=== PATIENT | female | born 1965 | race Caucasian/White ===

== ENCOUNTER 2016-11-15 08:46 | Emergency (ER) | payer OTHER, BC, MEDICAID ==
[2016-11-15] MEDS ORDERED: ONDANSETRON 4 MG ORAL DISINTEGRATING TAB (S0181) As Ordered ONE (09:09)
[2016-11-15] MEDS ORDERED: KETOROLAC 30 MG/ML VIAL (J1885) As Ordered ONE (09:10)
--- NOTE | 2016-11-15 09:52 | REP ---
CT Head without contrast HISTORY: Trauma COMPARISON: None There is no intraparenchymal hemorrhage, acute infarct, mass or midline shift. The ventricular system is normal in appearance. There is no extra cerebral collection. There is no fracture. The visualized sinuses are clear. Soft tissue swelling is present over the right parietal bone. IMPRESSION: There is no intracranial lesion. Signed by Chau Jeffery MD 11/15/2016 09:43 A
--- NOTE | 2016-11-15 09:56 | REP ---
CT cervical spine without contrast HISTORY: Trauma COMPARISON: None There is no acute fracture or subluxation. There is no disc bulge or herniation. The spinal canal and neural foramina are patent. The intervertebral discs and vertebral bodies are normal in height. IMPRESSION: There is no acute fracture or subluxation. Signed by Chau Jeffery MD 11/15/2016 09:47 A
--- NOTE | 2016-11-15 10:17 | EDDOCDS ---
Physician Documentation [facility] Name: Cheryl Spring Age: 51 yrs Sex: Female : 1965 Arrival Date: 11/15/2016 Time: 08:46 Bed PD Private MD: Zack Young MD Disposition: 11/15/16 09:45 Discharged to Home/Self Care. Impression: Concussion without loss of consciousness, Fall due to ice and snow. - Condition is Stable. - Discharge Instructions: Concussion, Adult, Head Injury, Adult. - Medication Reconciliation, Local Pharmacy Hours, Work Release Form - 1 day form. - Follow up: Emergency Department; When: As needed. Follow up: Zack Young; When: Call to arrange an appointment; Reason: Wound/Symptom Recheck, Recheck today's complaints, Worsening of conditions, Continuance of care. - Problem is new. - Symptoms are unchanged. Historical: - Allergies: SULFA (SULFONAMIDES); - Home Meds: 1. Levothyroxine 188mcg Oral once daily 2. metformin 500 mg Oral tr24 1 tab once daily 3. amoxicillin-pot clavulanate 875-125 mg Oral tab 1 tab every 12 hours 4. naproxen 500 mg Oral TbEC as needed - PMHx: Thyroid problem; Diabetes - NIDDM: controlled; - PSHx: Hysterectomy; Cesearean Section; - Social history: Smoking status: Patient states former smoker of tobacco. No barriers to communication noted, The patient speaks fluent Montenegrin, Speaks appropriately for age. - Family history: Not pertinent. - : The pt / caregiver states he / she is not on anticoagulants. Home medication list is obtained from the patient. - Exposure Risk Screening:: None identified. 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 7 in. (170.18 cm); Pain 8/10; 10:15 BP 133 / 94; Pulse 65; Resp 16; Temp 98.2(TE); Pulse Ox 99% on R/A; Pain 8/10; dsf 08:49 Body Mass Index 30.54 (88.45 kg, 170.18 cm) dem1 MDM: 09:07 Ondansetron ODT Oral Disintegrating Tablet 4 mg PO once ordered. cc10 09:08 ketorolac 60 mg IM once ordered. cc10 09:08 CT Head Without Contrast Ordered. EDMS 09:08 CT Spine,Cervical W/o Contrast Ordered. EDMS 09:22 Financial registration complete. pm4 09:58 [facility] Payment Agreement was scanned into [employer] and attached to record. pm4 Administered Medications: 09:28 Drug: Ondansetron ODT 4 mg [ondansetron 4 mg disintegrating tablet (1 tabs)] Route: PO; kr3 09:28 Drug: ketorolac 60 mg [ketorolac 30 mg/mL (1 mL) injection solution (2 mL)] Route: IM; kr3 Site: right deltoid; Signatures: Dispatcher [employer] EDMS Carito Jaramillo RN RN kr3 Jaycee Ramon RN RN dsf Billy Hassan, PA-Rhonda PA-C cc10 Balaji Forbes, Reg Reg pm4 The chart was reviewed and I authenticate all verbal orders and agree with the evaluation and treatment provided.Attachments: 09:58 [facility] Payment Agreement pm4 MTDD
--- NOTE | 2016-11-15 10:17 | EDDOCDS ---
Nurse's Notes [facility] Name: Cheryl Spring Age: 51 yrs Sex: Female : 1965 Arrival Date: 11/15/2016 Time: 08:46 Bed PD Private MD: Zack Young MD Diagnosis: Concussion without loss of consciousness;Fall due to ice and snow Presentation: 11/15 08:59 Presenting complaint: Patient states: pain back of head. Reports slipped on ice and hit kr3 back of head on ground. No LOC. Adult Sepsis Screening: The patient does not have new or worsening altered mentation. Patient's respiratory rate is less than 22. Systolic blood pressure is greater than 100. Patient has a qSOFA score of 0- Negative Sepsis Screen. Suicide/Homicide risk assessment- the patient denies having any suicidal and/or homicidal ideations and does not present with any other emotional, behavioral or mental health complaints. Status: Patient is not a room service runner or dependent. Transition of care: patient was not received from another setting of care. 08:59 Acuity: DAVIN Level 4 kr3 08:59 Method Of Arrival: Walkin/Carried/Asstd kr3 Triage Assessment: 09:02 General: Appears distressed, Behavior is crying. Pain: Location: back of head Pain kr3 currently is 9 out of 10 on a pain scale. Pt Declines HIV testing. Neurological: Level of Consciousness is awake, alert. Respiratory: Respiratory effort is even, unlabored. Musculoskeletal: Range of motion. 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 Levothyroxine 188mcg Oral once daily 2. metformin 500 mg Oral tr24 1 tab once daily 3. amoxicillin-pot clavulanate 875-125 mg Oral tab 1 tab every 12 hours 4. naproxen 500 mg Oral TbEC as needed - PMHx: Thyroid problem; Diabetes - NIDDM: controlled; - PSHx: Hysterectomy; Cesearean Section; - Social history: Smoking status: Patient states former smoker of tobacco. No barriers to communication noted, The patient speaks fluent Gibraltarian, Speaks appropriately for age. - Family history: Not pertinent. - : The pt / caregiver states he / she is not on anticoagulants. Home medication list is obtained from the patient. - Exposure Risk Screening:: None identified. Screenin:15 Screening information is obtained from the patient. Fall risk: No risks identified. dsf Assistance ADL's: requires no assistance with activities of daily living. Abuse/DV Screen: The patient / caregiver reports he/she is: not in a situation that causes fear, pain or injury. Nutritional screening: No deficits noted. Advance Directives: Currently, there is no health care proxy. home support is adequate. Assessment: 10:15 Adult Sepsis Screening: The patient does not have new or worsening altered mentation. dsf Patient's respiratory rate is less than 22. Systolic blood pressure is greater than 100. Patient has a qSOFA score of 0- Negative Sepsis Screen. General: Appears in no apparent distress, first contact with patient . Behavior is appropriate for age, cooperative. Pain: Location: head Pain currently is 8 out of 10 on a pain scale. Neurological: Level of Consciousness is awake, alert. Cardiovascular: Capillary refill < 3 seconds. Respiratory: Airway is patent Respiratory effort is even, unlabored, Respiratory pattern is regular, symmetrical. Derm: Skin is pink, warm & dry. Vital Signs: 08:49 BP 138 / 84; Pulse 76; Resp 18; Temp 98.8(O); Pulse Ox 100% on R/A; Weight 88.45 kg; dem1 Height 5 ft. 7 in. (170.18 cm); Pain 8/10; 10:15 BP 133 / 94; Pulse 65; Resp 16; Temp 98.2(TE); Pulse Ox 99% on R/A; Pain 8/10; dsf 08:49 Body Mass Index 30.54 (88.45 kg, 170.18 cm) [facility] Vitals: 08:49 Log In Time: November 15, 2016 at 08:46. [facility] ED Course: 08:48 Patient visited by Verónica Hernandez. dem1 08:48 Patient moved to Waiting dem1 08:49 Zack Young is Private Physician. dem1 08:49 Patient moved to Pre RCE dem1 08:51 Patient moved to Triage 1 dem1 08:57 [facility] cc10 08:57 Leslie Barber MD is Attending Physician. cc10 09:00 Triage Initiated kr3 09:02 Patient visited by Billy Hassan PA-C. cc10 09:02 Patient visited by Billy Hassan PA-C. cc10 09:29 Patient moved to TR1 kr3 09:45 Zack Young is Referral Physician. cc10 09:49 Patient name changed from Cheryl\S\\S\Saw\S\ to Cheryl\S\Renata\S\Saw. EDMS 09:58 [facility] Payment Agreement was scanned into [employer] and attached to record. pm4 10:06 Patient moved to PD dsf 10:15 The patient / caregiver is instructed regarding the plan of care and ED course. dsf 10:15 No IV's were initiated during this patient's visit. No procedures done that require dsf assistance. Administered Medications: 09:28 Drug: Ondansetron ODT 4 mg [ondansetron 4 mg disintegrating tablet (1 tabs)] Route: PO; kr3 09:28 Drug: ketorolac 60 mg [ketorolac 30 mg/mL (1 mL) injection solution (2 mL)] Route: IM; kr3 Site: right deltoid; Order Results: There are currently no results for this order. Outcome: 09:45 Discharge ordered by Provider. cc10 10:17 Discharge Assessment: Patient awake, alert and oriented x 3. No cognitive and/or dsf functional deficits noted. Patient verbalized understanding of disposition instructions. patient administered narcotics - no. The following High Risk Discharge criteria are identified: None. Discharged to home via wheelchair, with significant other. Condition: stable. Discharge instructions given to patient, Instructed on discharge instructions, follow up and referral plans. Demonstrated understanding of instructions, Pt was receptive of discharge instructions/ teaching. CT Study completed. Property sent home with patient. 10:17 Patient left the ED. dsf Signatures: Dispatcher [facility] EDMS Carito Jaramillo RN RN kr3 Jaycee Ramon RN RN dsf Verónica Hernandez dem1 Billy Hassan PA-C PA-C cc10 CarlosBalaji fox, Reg Reg pm4 MTDD
--- NOTE | 2016-11-17 11:18 | EDDOCDS ---
Physician Documentation [facility] Name: Cheryl Spring Age: 51 yrs Sex: Female : 1965 Arrival Date: 11/15/2016 Time: 08:46 Bed PD Private MD: Zack Young MD Disposition: 11/15/16 09:45 Discharged to Home/Self Care. Impression: Concussion without loss of consciousness, Fall due to ice and snow. - Condition is Stable. - Discharge Instructions: Concussion, Adult, Head Injury, Adult. - Medication Reconciliation, Local Pharmacy Hours, Work Release Form - 1 day form. - Follow up: Emergency Department; When: As needed. Follow up: Zack Young; When: Call to arrange an appointment; Reason: Wound/Symptom Recheck, Recheck today's complaints, Worsening of conditions, Continuance of care. - Problem is new. - Symptoms are unchanged. Historical: - Allergies: SULFA (SULFONAMIDES); - Home Meds: 1. Levothyroxine 188mcg Oral once daily 2. metformin 500 mg Oral tr24 1 tab once daily 3. amoxicillin-pot clavulanate 875-125 mg Oral tab 1 tab every 12 hours 4. naproxen 500 mg Oral TbEC as needed - PMHx: Thyroid problem; Diabetes - NIDDM: controlled; - PSHx: Hysterectomy; Cesearean Section; - Social history: Smoking status: Patient states former smoker of tobacco. No barriers to communication noted, The patient speaks fluent Fijian, Speaks appropriately for age. - Family history: Not pertinent. - : The pt / caregiver states he / she is not on anticoagulants. Home medication list is obtained from the patient. - Exposure Risk Screening:: None identified. 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 7 in. (170.18 cm); Pain 8/10; 10:15 BP 133 / 94; Pulse 65; Resp 16; Temp 98.2(TE); Pulse Ox 99% on R/A; Pain 8/10; dsf 08:49 Body Mass Index 30.54 (88.45 kg, 170.18 cm) dem1 MDM: 09:07 Ondansetron ODT Oral Disintegrating Tablet 4 mg PO once ordered. cc10 09:08 ketorolac 60 mg IM once ordered. cc10 09:08 CT Head Without Contrast Ordered. EDMS 09:08 CT Spine,Cervical W/o Contrast Ordered. EDMS 09:22 Financial registration complete. pm4 09:58 [facility] Payment Agreement was scanned into [employer] and attached to record. pm4 11/16 08:02 T-Sheet-- Draft Copy was scanned into [employer] and attached to record. gb Administered Medications: 11/15 09:28 Drug: Ondansetron ODT 4 mg [ondansetron 4 mg disintegrating tablet (1 tabs)] Route: PO; kr3 09:28 Drug: ketorolac 60 mg [ketorolac 30 mg/mL (1 mL) injection solution (2 mL)] Route: IM; kr3 Site: right deltoid; Signatures: Dispatcher [employer]OK Barbara Ferreira, Reg Reg gb Carito Jaramillo,RN RN kr3 Jaycee Ramon RN RN dsf Billy Hassan, PA-Rhonda PA-C cc10 Balaji Forbes, Reg Reg pm4 The chart was reviewed and I authenticate all verbal orders and agree with the evaluation and treatment provided.Attachments: :58 [facility] Payment Agreement pm4 11/16 08:02 T-Sheet-- Draft Copy gb Chart Complete MTDD
--- NOTE | 2016-11-17 11:18 | EDDOCDS ---
Physician Documentation [facility] Name: Cheryl Spring Age: 51 yrs Sex: Female : 1965 Arrival Date: 11/15/2016 Time: 08:46 Bed PD Private MD: Zack Young MD Disposition: 11/15/16 09:45 Discharged to Home/Self Care. Impression: Concussion without loss of consciousness, Fall due to ice and snow. - Condition is Stable. - Discharge Instructions: Concussion, Adult, Head Injury, Adult. - Medication Reconciliation, Local Pharmacy Hours, Work Release Form - 1 day form. - Follow up: Emergency Department; When: As needed. Follow up: Zack Young; When: Call to arrange an appointment; Reason: Wound/Symptom Recheck, Recheck today's complaints, Worsening of conditions, Continuance of care. - Problem is new. - Symptoms are unchanged. Historical: - Allergies: SULFA (SULFONAMIDES); - Home Meds: 1. Levothyroxine 188mcg Oral once daily 2. metformin 500 mg Oral tr24 1 tab once daily 3. amoxicillin-pot clavulanate 875-125 mg Oral tab 1 tab every 12 hours 4. naproxen 500 mg Oral TbEC as needed - PMHx: Thyroid problem; Diabetes - NIDDM: controlled; - PSHx: Hysterectomy; Cesearean Section; - Social history: Smoking status: Patient states former smoker of tobacco. No barriers to communication noted, The patient speaks fluent South African, Speaks appropriately for age. - Family history: Not pertinent. - : The pt / caregiver states he / she is not on anticoagulants. Home medication list is obtained from the patient. - Exposure Risk Screening:: None identified. 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 7 in. (170.18 cm); Pain 8/10; 10:15 BP 133 / 94; Pulse 65; Resp 16; Temp 98.2(TE); Pulse Ox 99% on R/A; Pain 8/10; dsf 08:49 Body Mass Index 30.54 (88.45 kg, 170.18 cm) dem1 MDM: 09:07 Ondansetron ODT Oral Disintegrating Tablet 4 mg PO once ordered. cc10 09:08 ketorolac 60 mg IM once ordered. cc10 09:08 CT Head Without Contrast Ordered. EDMS 09:08 CT Spine,Cervical W/o Contrast Ordered. EDMS 09:22 Financial registration complete. pm4 09:58 [facility] Payment Agreement was scanned into [employer] and attached to record. pm4 11/16 08:02 T-Sheet-- Draft Copy was scanned into [employer] and attached to record. gb Administered Medications: 11/15 09:28 Drug: Ondansetron ODT 4 mg [ondansetron 4 mg disintegrating tablet (1 tabs)] Route: PO; kr3 09:28 Drug: ketorolac 60 mg [ketorolac 30 mg/mL (1 mL) injection solution (2 mL)] Route: IM; kr3 Site: right deltoid; Signatures: Dispatcher [employer] EDMD Barbara Ferreira, Reg Reg gb Carito Jaramillo,RN RN kr3 Jaycee Ramon RN RN dsf Billy Hassan, PA-Rhonda PA-C cc10 Balaji Forbes, Reg Reg pm4 The chart was reviewed and I authenticate all verbal orders and agree with the evaluation and treatment provided.Attachments: :58 [facility] Payment Agreement pm4 11/16 08:02 T-Sheet-- Draft Copy gb Chart Complete MTDD
--- NOTE | 2016-11-17 11:18 | EDDOCDS ---
Nurse's Notes [facility] Name: Cheryl Spring Age: 51 yrs Sex: Female : 1965 Arrival Date: 11/15/2016 Time: 08:46 Bed PD Private MD: Zack Young MD Diagnosis: Concussion without loss of consciousness;Fall due to ice and snow Presentation: 11/15 08:59 Presenting complaint: Patient states: pain back of head. Reports slipped on ice and hit kr3 back of head on ground. No LOC. Adult Sepsis Screening: The patient does not have new or worsening altered mentation. Patient's respiratory rate is less than 22. Systolic blood pressure is greater than 100. Patient has a qSOFA score of 0- Negative Sepsis Screen. Suicide/Homicide risk assessment- the patient denies having any suicidal and/or homicidal ideations and does not present with any other emotional, behavioral or mental health complaints. Status: Patient is not a ambulatory service representative or dependent. Transition of care: patient was not received from another setting of care. 08:59 Acuity: DAVIN Level 4 kr3 08:59 Method Of Arrival: Walkin/Carried/Asstd kr3 Triage Assessment: 09:02 General: Appears distressed, Behavior is crying. Pain: Location: back of head Pain kr3 currently is 9 out of 10 on a pain scale. Pt Declines HIV testing. Neurological: Level of Consciousness is awake, alert. Respiratory: Respiratory effort is even, unlabored. Musculoskeletal: Range of motion. 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 Levothyroxine 188mcg Oral once daily 2. metformin 500 mg Oral tr24 1 tab once daily 3. amoxicillin-pot clavulanate 875-125 mg Oral tab 1 tab every 12 hours 4. naproxen 500 mg Oral TbEC as needed - PMHx: Thyroid problem; Diabetes - NIDDM: controlled; - PSHx: Hysterectomy; Cesearean Section; - Social history: Smoking status: Patient states former smoker of tobacco. No barriers to communication noted, The patient speaks fluent Sierra Leonean, Speaks appropriately for age. - Family history: Not pertinent. - : The pt / caregiver states he / she is not on anticoagulants. Home medication list is obtained from the patient. - Exposure Risk Screening:: None identified. Screenin:15 Screening information is obtained from the patient. Fall risk: No risks identified. dsf Assistance ADL's: requires no assistance with activities of daily living. Abuse/DV Screen: The patient / caregiver reports he/she is: not in a situation that causes fear, pain or injury. Nutritional screening: No deficits noted. Advance Directives: Currently, there is no health care proxy. home support is adequate. Assessment: 10:15 Adult Sepsis Screening: The patient does not have new or worsening altered mentation. dsf Patient's respiratory rate is less than 22. Systolic blood pressure is greater than 100. Patient has a qSOFA score of 0- Negative Sepsis Screen. General: Appears in no apparent distress, first contact with patient . Behavior is appropriate for age, cooperative. Pain: Location: head Pain currently is 8 out of 10 on a pain scale. Neurological: Level of Consciousness is awake, alert. Cardiovascular: Capillary refill < 3 seconds. Respiratory: Airway is patent Respiratory effort is even, unlabored, Respiratory pattern is regular, symmetrical. Derm: Skin is pink, warm & dry. Vital Signs: 08:49 BP 138 / 84; Pulse 76; Resp 18; Temp 98.8(O); Pulse Ox 100% on R/A; Weight 88.45 kg; dem1 Height 5 ft. 7 in. (170.18 cm); Pain 8/10; 10:15 BP 133 / 94; Pulse 65; Resp 16; Temp 98.2(TE); Pulse Ox 99% on R/A; Pain 8/10; dsf 08:49 Body Mass Index 30.54 (88.45 kg, 170.18 cm) [facility] Vitals: 08:49 Log In Time: November 15, 2016 at 08:46. [facility] ED Course: 08:48 Patient visited by Verónica Hernandez. dem1 08:48 Patient moved to Waiting dem1 08:49 Zack Young is Private Physician. dem1 08:49 Patient moved to Pre RCE dem1 08:51 Patient moved to Triage 1 dem1 08:57 Billy Hassan PA-C [facility] cc10 08:57 Leslie Barber MD is Attending Physician. cc10 09:00 Triage Initiated kr3 09:02 Patient visited by Billy Hassan PA-C. cc10 09:02 Patient visited by Billy Hassan PA-C. cc10 09:29 Patient moved to TR1 kr3 09:45 Zack Young is Referral Physician. cc10 09:49 Patient name changed from Cheryl\S\\S\Saw\S\ to Cheryl\S\Renata\S\Saw. EDMS 09:58 [facility] [place] Agreement was scanned into [employer] and attached to record. pm4 10:06 Patient moved to PD dsf 10:15 The patient / caregiver is instructed regarding the plan of care and ED course. dsf 10:15 No IV's were initiated during this patient's visit. No procedures done that require dsf assistance. 10:28 CT Head Without Contrast Returned. EDMS 10:28 CT Spine,Cervical W/o Contrast Returned. EDMS 01 08:02 T-Sheet-- Draft Copy was scanned into [employer] and attached to record. gb Administered Medications: 11/15 09:28 Drug: Ondansetron ODT 4 mg [ondansetron 4 mg disintegrating tablet (1 tabs)] Route: PO; kr3 09:28 Drug: ketorolac 60 mg [ketorolac 30 mg/mL (1 mL) injection solution (2 mL)] Route: IM; kr3 Site: right deltoid; Order Results: Radiology Order: CT Head Without Contrast Test: CT Head Without Contrast REASON FOR EXAMINATION: Trauma; CT Head without contrast; ; HISTORY: Trauma; ; COMPARISON: None; ; There is no intraparenchymal hemorrhage, acute infarct, mass or midline shift.; The ventricular system is normal in appearance. There is no extra cerebral; collection. There is no fracture. The visualized sinuses are clear. Soft tissue; swelling is present over the right parietal bone.; ; IMPRESSION: There is no intracranial lesion.; ; ; ; ; Signed by; Chau Jeffery MD 11/15/2016 09:43 A; Radiology Order: CT Spine,Cervical W/o Contrast Test: CT Spine,Cervical W/o Contrast REASON FOR EXAMINATION: Trauma; CT cervical spine without contrast; ; HISTORY: Trauma; ; COMPARISON: None; ; There is no acute fracture or subluxation. There is no disc bulge or herniation.; The spinal canal and neural foramina are patent. The intervertebral discs and; vertebral bodies are normal in height.; ; IMPRESSION: There is no acute fracture or subluxation.; ; ; Signed by; Chau Jeffery MD 11/15/2016 09:47 A; Outcome: 09:45 Discharge ordered by Provider. cc10 10:17 Discharge Assessment: Patient awake, alert and oriented x 3. No cognitive and/or dsf functional deficits noted. Patient verbalized understanding of disposition instructions. patient administered narcotics - no. The following High Risk Discharge criteria are identified: None. Discharged to home via wheelchair, with significant other. Condition: stable. Discharge instructions given to patient, Instructed on discharge instructions, follow up and referral plans. Demonstrated understanding of instructions, Pt was receptive of discharge instructions/ teaching. CT Study completed. Property sent home with patient. 10:17 Patient left the ED. dsf Signatures: Dispatcher [employer] EDMS Barbara Ferreira, Reg Reg gb Carito Jaramillo RN RN kr3 Jaycee Ramon RN RN dsf Verónica Hernandez1 Billy Hassan, PA-Rhonda PA-C cc10 Balaji Forbes, Reg Reg pm4 Chart Complete MTDD
== END 2016-11-15 10:17 | disposition home or self-care (01) ==
LOC: M ED 08:46
DX: S06.0X0A Concussion without loss of consciousness, initial encounter (principal); W00.9XXA Unspecified fall due to ice and snow, initial encounter; Y92.410 Unspecified street and highway as the place of occurrence of the external cause; Y93.89 Activity, other specified; Y99.0 Civilian activity done for income or pay; E11.9 Type 2 diabetes mellitus without complications; E03.9 Hypothyroidism, unspecified; Z90.79 Acquired absence of other genital organ(s); Z87.891 Personal history of nicotine dependence; Z79.899 Other long term (current) drug therapy; Z88.2 Allergy status to sulfonamides
CPT/HCPCS: 70450; 72125; 96372; 99284; J1885

== ENCOUNTER → 2017-02-15 | Outpatient (CLI) | payer BC ==
--- NOTE | 2017-02-15 09:41 | REPMRS ---
Patient History The patient states she had a clinical breast exam in 02/25 Family history of prostate cancer in father at age 50 or over and colorectal cancer in mother at age 50 or over. Took hormonal contraceptives for 19 years. Taking estrogen for 1 year. Digital Woman Screen Mammo: February 15, 2017 - Exam #: [id number] Bilateral CC and MLO view(s) were taken. Technologist: Poonam Carranza, Technologist Prior study comparison: February 16, 2016, digital woman screen mammo performed at [facility]. February 15, 2014, digital woman screen mammo performed at [facility]. FINDINGS: The breast tissue is heterogeneously dense. This may lower the sensitivity of mammography. There is a moderate amount of heterogeneously dense fibroglandular tissue which is fairly symmetric. There is no interval development of dominant mass, architectural distortion, or clustered microcalcification typical of malignancy. There has been no change in the appearance of the mammogram from the prior studies. ASSESSMENT: BI-RADS/ACR category 1 mammogram. Negative. Recommendation Routine screening mammogram of both breasts in 1 year (for women over age 40). This mammogram was interpreted with the aid of an FDA-approved computer-aided dectection system. Electronically Signed By: Jose Mercado MD 02/15/17 0932
== END ==
LOC: M WHC 08:07
PROVIDERS: ATTEND Nurse Practitioner Family
DX: Z12.31 Encounter for screening mammogram for malignant neoplasm of breast (principal)

== ENCOUNTER 2017-08-05 09:31 | Outpatient (CLI) | payer BC ==
[~2017-08-05] VITALS: Ht 170.2 cm; Wt 82.8 kg
[~2017-08-05 09:31] MED LIST: ESTR0.059 TD; LEVO100T5 PO; LORA10TA2 PO; METF500T13 PO; NAPR500T3 PO; SYNT88TA2 PO; TIZA4CAP3 PO; TYLETAB14 PO; VITA100067 PO
[2017-08-05] MEDS ORDERED: NS 1,000 ML IV ONE (09:45)
[2017-08-05] MEDS ORDERED: PROPOFOL 200 MG/20 ML VIAL As Ordered ONE ×2 (11:56→11:57)
[2017-08-05] MEDS ORDERED: LIDOCAINE 2% INJ 100 MG/5 ML SDV (FOR ANES.) As Ordered ONE (12:00)
--- NOTE | 2017-08-05 12:05 | ROOR ---
Patient Name: Cheryl Spring Procedure Date: 08/05/2017 11:49 AM Date of : 1965 Age: 52 Room: OP02 Gender: Female Note Status: Finalized Procedure: Colonoscopy Indications: High risk colon cancer surveillance: Personal history of colonic polyps, Last colonoscopy: May 2014, Family history of colon cancer in a first-degree relative Providers: Yonny BHATT MD Referring MD: [facility], [place] Requesting Provider: Medicines: Monitored Anesthesia Care Complications: No immediate complications. Procedure: Pre-Anesthesia Assessment: - The heart rate, respiratory rate, oxygen saturations, blood pressure, adequacy of pulmonary ventilation, and response to care were monitored throughout the procedure. The Colonoscope was introduced through the anus and advanced to the cecum, identified by appendiceal orifice and ileocecal valve. The colonoscopy was performed without difficulty. The patient tolerated the procedure well. The quality of the bowel preparation was good. Findings: The perianal and digital rectal examinations were normal. (Exam: Complete, Prep: Good or Excellent.) The entire examined colon appeared normal on direct and retroflexion views. Impression: - (Exam: Complete, Prep: Good or Excellent.) - The entire examined colon is normal on direct and retroflexion views. - No specimens collected. Recommendation: - Repeat colonoscopy in 5 years for surveillance based on personal history of previous adenomatous polyps. Yonny Bhatt MD Yonny BHATT MD 08/05/2017 12:05:06 PM This report has been signed electronically. Number of Addenda: 0 Note Initiated On: 08/05/2017 11:49 AM Estimated Blood Loss: Estimated blood loss: none.
[2017-08-05 12:25] VITALS: BP 122/69
== END 2017-08-05 12:40 | disposition home or self-care (01) ==
LOC: M OPP 09:31
PROVIDERS: ATTEND Internal Medicine Gastroenterology
DX: Z12.11 Encounter for screening for malignant neoplasm of colon (principal); Z86.010 Personal history of colon polyps; Z80.0 Family history of malignant neoplasm of digestive organs; Z88.2 Allergy status to sulfonamides; Z79.84 Long term (current) use of oral hypoglycemic drugs; Z79.899 Other long term (current) drug therapy; E03.9 Hypothyroidism, unspecified; E11.9 Type 2 diabetes mellitus without complications; Z87.19 Personal history of other diseases of the digestive system; M13.89 Other specified arthritis, multiple sites; Z85.72 Personal history of non-Hodgkin lymphomas

== ENCOUNTER → 2017-10-21 | Outpatient (REF) | payer BC | LOC: M SFHCLERA 07:21 | PROVIDERS: ATTEND Family Medicine | DX: R73.01 Impaired fasting glucose (principal); E03.9 Hypothyroidism, unspecified ==

== ENCOUNTER → 2017-11-20 | Outpatient (REF) | payer BC | LOC: M SFHCLERA 09:01 | DX: N30.00 Acute cystitis without hematuria (principal) ==

== ENCOUNTER → 2017-12-03 | Outpatient (REF) | payer BC ==
[2017-12-03 17:38] LABS: BASO % 0.3 % (0.0-1.0); EOS # 0.2 10^3/uL (0.0-0.50); EOS % 2.2 % (0.0-3.0); HEMATOCRIT 39.8 % (36.0-47.0); HEMOGLOBIN 12.6 g/dl (12.0-16.0); IMMATURE GRANULOCYTE % 0.4 % (0-0); LYMPH # 3.1 10^3/uL (1.5-4.5); MEAN CORPUSCULAR HGB CONC 31.7 g/dl (32.0-36.5); MEAN CORPUSCULAR VOLUME 91.7 fl (80.0-96.0); MONO # 0.4 10^3/uL (0.0-0.8); MONO % 5.2 % (0.0-5.0); NEUTROPHILS % 51.9 % (36.0-66.0); PLATELET COUNT, AUTOMATED 201 10^3/uL (150-450); RED BLOOD COUNT 4.34 10^6/uL (4.00-5.40); RED CELL DISTRIBUTION WIDTH 12.1 % (11.5-14.5); WHITE BLOOD COUNT 7.7 10^3/uL (4.0-10.0)
== END ==
LOC: M SFHCLERA 14:21
DX: N30.00 Acute cystitis without hematuria (principal)
CPT/HCPCS: 85025

== ENCOUNTER 2017-12-16 03:58 | Emergency (ER) | payer BC ==
[2017-12-16] MEDS: ONDANSETRON 4MG/2ML VIAL (J2405) IV (05:30)
[2017-12-16] MEDS: KETOROLAC 30 MG/ML VIAL (J1885) IV (05:30)
[2017-12-16] MEDS: LORazepam 2 MG/ML VIAL (J2060) IV (05:30)
[2017-12-16] MEDS: MORPHINE 4 MG/ML 1ML VIAL IV (05:31)
[2017-12-16] MEDS: OXYCODONE/APAP 5MG/325MG(BULK FOR ED) 1 TABLET PO (07:22)
== END 2017-12-16 07:32 | disposition home or self-care (01) ==
LOC: M ED 03:58
DX: M54.5 Low back pain (principal); Z79.899 Other long term (current) drug therapy; Z88.2 Allergy status to sulfonamides
CPT/HCPCS: J2405

== ENCOUNTER → 2018-06-19 | Outpatient (REF) | payer BC ==
[2018-06-19 20:10] LABS: ANION GAP 11 MEQ/L (8-16); BLOOD UREA NITROGEN 11 MG/DL (7-18); CALCIUM LEVEL 9.2 MG/DL (8.5-10.1); CARBON DIOXIDE LEVEL 25 MEQ/L (21-32); CHLORIDE LEVEL 109 MEQ/L (98-107); CREATININE FOR GFR 0.59 MG/DL (0.55-1.30); GLOMERULAR FILTRATION RATE > 60.0 (>51); GLUCOSE, FASTING 82 MG/DL (70-100); POTASSIUM SERUM 3.9 MEQ/L (3.5-5.1); SODIUM LEVEL 145 MEQ/L (136-145); THYROID STIMULATING HORMONE 0.317 uIU/ML (0.358-3.740)
[2018-06-19 20:20] LABS: ESTIMATED AVERAGE GLUCOSE 120 MG/DL (60-110); HEMOGLOBIN A1c 5.8 %
== END ==
LOC: M SFHCLERA 16:00
DX: R73.03 Prediabetes (principal); M25.561 Pain in right knee; E03.9 Hypothyroidism, unspecified
CPT/HCPCS: 84443

== ENCOUNTER → 2018-06-19 | Outpatient (CLI) | payer BC | LOC: M LRY 16:13 | DX: M25.561 Pain in right knee (principal) | CPT/HCPCS: G0463 ==

== ENCOUNTER → 2018-07-29 | Outpatient (REF) | payer BC ==
[2018-07-29 18:32] LABS: ALBUMIN 4.3 GM/DL (3.2-5.2); ALBUMIN/GLOBULIN RATIO 1.23 (1.00-1.93); ALKALINE PHOSPHATASE 71 U/L (45-117); ALT/SGPT 25 U/L (12-78); ANION GAP 11 MEQ/L (8-16); AST/SGOT 23 U/L (7-37); BILIRUBIN,TOTAL 0.5 MG/DL (0.2-1.0); BLOOD UREA NITROGEN 13 MG/DL (7-18); CALCIUM LEVEL 9.6 MG/DL (8.5-10.1); CARBON DIOXIDE LEVEL 26 MEQ/L (21-32); CHLORIDE LEVEL 106 MEQ/L (98-107); CREATININE FOR GFR 0.61 MG/DL (0.55-1.30); GLOMERULAR FILTRATION RATE > 60.0 (>51); GLUCOSE, FASTING 92 MG/DL (70-100); POTASSIUM SERUM 3.8 MEQ/L (3.5-5.1); SODIUM LEVEL 143 MEQ/L (136-145); THYROID STIMULATING HORMONE 0.129 uIU/ML (0.358-3.740); TOTAL PROTEIN 7.8 GM/DL (6.4-8.2)
== END ==
LOC: M SFHCLERA 11:42
DX: R10.11 Right upper quadrant pain (principal); E03.9 Hypothyroidism, unspecified
CPT/HCPCS: 84443

== ENCOUNTER → 2018-08-05 | Outpatient (CLI) | payer BC | LOC: M RAD 07:03 | DX: R10.11 Right upper quadrant pain (principal) | CPT/HCPCS: 76705 ==

== ENCOUNTER → 2018-09-10 | Outpatient (REF) | payer BC ==
[2018-09-10 19:00] LABS: APPEARANCE, URINE CLOUDY (CLEAR); BACTERIA, URINE AUTO 3+ (NEGATIVE); BILIRUBIN, URINE AUTO NEGATIVE (NEGATIVE); BLOOD, URINE BLOOD 1+ (NEGATIVE); COLOR, URINE YELLOW (YELLOW); GLUCOSE, URINE (UA) AUTO NEGATIVE (NEGATIVE); KETONE, URINE AUTO NEGATIVE (NEGATIVE); LEUKOCYTE ESTERASE, URINE AUTO 3+ (NEGATIVE); MUCUS, URINE SMALL (NEGATIVE); NITRITE, URINE AUTO NEGATIVE (NEGATIVE); PROTEIN, URINE AUTO 1+ mg/dL (NEGATIVE); RBC, URINE AUTO 10 /HPF (0-3); SPECIFIC GRAVITY URINE AUTO 1.019 (1.002-1.035); SQUAMOUS EPITHELIAL CELL UR AU 3 /HPF (0-6); UROBILINOGEN, URINE AUTO 0.2 mg/dL (0.0-2.0); WBC, URINE AUTO TNTC /HPF (0-3)
== END ==
LOC: M LAB REF 16:41
DX: N39.0 Urinary tract infection, site not specified (principal)
CPT/HCPCS: 81001

== ENCOUNTER → 2019-01-21 | Outpatient (REF) | payer OTHER ==
[~2019-01-21] MED LIST changes: +KEFL500C17 PO; +LEVO10VL PO; +LORA-243 PO; -LORA10TA2 PO; +NAPR-885 PO; -NAPR500T3 PO; +PERC5TAB12 PO; +PYRI1TAB5 PO; +ROBA500T PO; +TIZA4CAP PO; -TIZA4CAP3 PO
[2019-01-21 21:24] LABS: HIV 1&2 SCREEN CENTAUR NEGATIVE (NEGATIVE)
[2019-01-21 22:53] LABS: CHLAMYDIA DNA AMPLIFICATION NEGATIVE (NEGATIVE); GC DNA AMPLIFICATION NEGATIVE (NEGATIVE)
[2019-01-23 10:43] LABS: HEPATITIS B SURFACE ANTIGEN NEGATIVE (NEGATIVE)
[2019-01-23 11:12] LABS: HEPATITIS C VIRUS ABY INDEX < 0.0 INDEX (<0.8)
== END ==
LOC: M SFHCLERA 15:08
PROVIDERS: ATTEND Family Medicine
DX: Z11.3 Encounter for screening for infections with a predominantly sexual mode of transmission (principal); Z11.59 Encounter for screening for other viral diseases; E03.9 Hypothyroidism, unspecified

== ENCOUNTER → 2019-02-17 | Outpatient (REF) | payer OTHER ==
[2019-02-19 14:36] LABS: HPV HYBRID CAPTURE II Negative (Negative)
== END ==
LOC: M SFHCWAGY 08:31
PROVIDERS: ATTEND Nurse Practitioner Family
DX: Z12.72 Encounter for screening for malignant neoplasm of vagina (principal)

== ENCOUNTER → 2019-02-17 | Outpatient (CLI) | payer OTHER ==
--- NOTE | 2019-02-17 10:41 | REPMRS ---
Patient History The patient states she had a clinical breast exam in 02/2019. Family history of prostate cancer at age 78 in father, colorectal cancer at age 62 in mother. Took hormonal contraceptives for 19 years. Taking estrogen for 3 years. Digital Woman Screen Mammo: February 17, 2019 - Exam #: [id number] Bilateral CC and MLO view(s) were taken. Technologist: Poonam Carranza, Technologist Prior study comparison: February 17, 2018, digital woman screen mammo performed at [facility]. February 15, 2017, digital woman screen mammo performed at [facility]. February 16, 2016, digital woman screen mammo performed at [facility]. FINDINGS: The breast tissue is heterogeneously dense. This may lower the sensitivity of mammography. There is a moderate amount of heterogeneously dense fibroglandular tissue which is fairly symmetric. There is no interval development of dominant mass, architectural distortion, or clustered microcalcification typical of malignancy. There has been no change in the appearance of the mammogram from the prior studies. 3-D tomosynthesis shows no additional findings. Assessment: BI-RADS/ACR category 1 mammogram. Negative Mammogram. Recommendation Routine screening mammogram of both breasts in 1 year (for women over age 40). This patient's Lifetime Breast Cancer RIsk is estimated at 10.0 %. This mammogram was interpreted with the aid of an FDA-approved computer-aided dectection system. Electronically Signed By: Jose Mercado MD 02/17/19 [id number]
== END ==
LOC: M WHC 07:54
PROVIDERS: ATTEND Nurse Practitioner Family
DX: Z12.31 Encounter for screening mammogram for malignant neoplasm of breast (principal); Z80.42 Family history of malignant neoplasm of prostate; Z80.0 Family history of malignant neoplasm of digestive organs

== ENCOUNTER → 2019-03-15 | Outpatient (CLI) | payer OTHER ==
--- NOTE | 2019-03-15 10:36 | REP ---
CHEST, TWO VIEWS: There is no evidence of acute infiltrate. No pleural effusion is seen. The heart is normal in size. The mediastinal silhouette is unremarkable. The visualized osseous structures are intact. There are degenerative changes of the spine. IMPRESSION: No acute pulmonary disease. Electronically Signed by Jesse Power MD 03/15/2019 11:37 A
== END ==
LOC: M LRY 09:36
PROVIDERS: ATTEND Nurse Practitioner Family
DX: R06.2 Wheezing (principal)

== ENCOUNTER → 2019-03-15 | Outpatient (REF) | payer OTHER | LOC: M SFHCLERA 09:44 | PROVIDERS: ATTEND Nurse Practitioner Family | DX: R50.9 Fever, unspecified (principal) ==

== ENCOUNTER → 2019-07-21 | Outpatient (REF) | payer OTHER | LOC: M SFHCLERA 09:24 | PROVIDERS: ATTEND Nurse Practitioner Family | DX: R30.0 Dysuria (principal) ==

== ENCOUNTER → 2019-08-07 | Outpatient (REF) | payer OTHER ==
[2019-08-07 12:12] LABS: APPEARANCE, URINE CLEAR (CLEAR); BACTERIA, URINE AUTO 1+ (NEGATIVE); BILIRUBIN, URINE AUTO NEGATIVE (NEGATIVE); BLOOD, URINE BLOOD 1+ (NEGATIVE); COLOR, URINE YELLOW (YELLOW); GLUCOSE, URINE (UA) AUTO NEGATIVE (NEGATIVE); KETONE, URINE AUTO NEGATIVE (NEGATIVE); LEUKOCYTE ESTERASE, URINE AUTO NEGATIVE (NEGATIVE); NITRITE, URINE AUTO NEGATIVE (NEGATIVE); PROTEIN, URINE AUTO NEGATIVE (NEGATIVE); RBC, URINE AUTO 2 /HPF (0-3); SPECIFIC GRAVITY URINE AUTO 1.016 (1.002-1.035); SQUAMOUS EPITHELIAL CELL UR AU 7 /HPF (0-6); UROBILINOGEN, URINE AUTO 0.2 mg/dL (0.0-2.0); WBC, URINE AUTO 1 /HPF (0-3)
[2019-08-07 12:29] LABS: HEMOGLOBIN A1c 5.9 %
[2019-08-07 12:31] LABS: CHOLESTEROL RISK RATIO 2.727 (<5); THYROID STIMULATING HORMONE 12.8 uIU/ML (0.358-3.740)
[2019-08-13 00:09] LABS: TRANSFERRIN 246 mg/dL (200-370)
== END ==
LOC: M SFHCLERA 08:04
PROVIDERS: ATTEND Family Medicine
DX: E03.9 Hypothyroidism, unspecified (principal); R31.9 Hematuria, unspecified; R73.03 Prediabetes; Z83.49 Family history of other endocrine, nutritional and metabolic diseases

== ENCOUNTER → 2019-09-11 | Outpatient (REF) | payer OTHER | LOC: M SFHCLERA 16:50 | PROVIDERS: ATTEND Nurse Practitioner Family | DX: R39.9 Unspecified symptoms and signs involving the genitourinary system (principal) ==

== ENCOUNTER → 2019-09-21 | Outpatient (REF) | payer OTHER ==
[2019-09-21 12:49] LABS: AMORPHOUS SEDIMENT MODERATE (NEGATIVE); APPEARANCE, URINE TURBID (CLEAR); BACTERIA, URINE AUTO NEGATIVE (NEGATIVE); BILIRUBIN, URINE AUTO NEGATIVE (NEGATIVE); BLOOD, URINE BLOOD 1+ (NEGATIVE); COLOR, URINE YELLOW (YELLOW); GLUCOSE, URINE (UA) AUTO NEGATIVE (NEGATIVE); KETONE, URINE AUTO NEGATIVE (NEGATIVE); LEUKOCYTE ESTERASE, URINE AUTO TRACE (NEGATIVE); NITRITE, URINE AUTO NEGATIVE (NEGATIVE); PROTEIN, URINE AUTO NEGATIVE (NEGATIVE); RBC, URINE AUTO 0 /HPF (0-3); SPECIFIC GRAVITY URINE AUTO 1.026 (1.002-1.035); SQUAMOUS EPITHELIAL CELL UR AU 5 /HPF (0-6); UROBILINOGEN, URINE AUTO 0.2 mg/dL (0.0-2.0); WBC, URINE AUTO 0 /HPF (0-3)
== END ==
LOC: M SFHCLERA 08:08
PROVIDERS: ATTEND Family Medicine
DX: R82.998 Other abnormal findings in urine (principal); E03.9 Hypothyroidism, unspecified; R31.29 Other microscopic hematuria

== ENCOUNTER → 2020-05-11 | Outpatient (CLI) | payer OTHER ==
--- NOTE | 2020-05-11 09:50 | REP ---
LUMBAR SPINE SERIES: Five views. HISTORY: Bilateral low back pain. Comparison lumbar spine radiographs August 21, 2011. FINDINGS: Lumbar vertebral body heights are preserved. Alignment is normal. There is degenerative disc disease with disc space narrowing and anterior osteophyte formation at L4-5 and to a lesser extent L3-4. Mild spurring is seen at L5-S1. Changes are slightly more pronounced than on the 2011 prior study. There is no evidence of spondylolysis or spondylolisthesis. There is mild facet hypertrophy and sclerosis bilaterally at L5-S1. Psoas margins are intact. Bowel gas pattern is unremarkable. Sacrum and SI joints are unremarkable. IMPRESSION: Mild degenerative spondylosis changes as above. Electronically Signed by Erlin Mercado MD 05/11/2020 10:55 A
== END ==
LOC: M LRY 09:10
PROVIDERS: ATTEND Family Medicine
DX: M54.5 Low back pain (principal); M47.816 Spondylosis without myelopathy or radiculopathy, lumbar region

== ENCOUNTER → 2020-05-11 | Outpatient (REF) | payer OTHER ==
[2020-05-11 12:42] LABS: BLOOD UREA NITROGEN 14 MG/DL (7-18); CALCIUM LEVEL 8.9 MG/DL (8.5-10.1); CARBON DIOXIDE LEVEL 30 MEQ/L (21-32); CHLORIDE LEVEL 108 MEQ/L (98-107); CREATININE FOR GFR 0.98 MG/DL (0.55-1.30); GLOMERULAR FILTRATION RATE > 60.0 (>51); GLUCOSE, FASTING 103 MG/DL (70-100); POTASSIUM SERUM 4.3 MEQ/L (3.5-5.1); SODIUM LEVEL 141 MEQ/L (136-145)
[2020-05-11 13:39] LABS: HEMOGLOBIN A1c 5.7 %
== END ==
LOC: M SFHCLERA 09:11
PROVIDERS: ATTEND Family Medicine
DX: E03.9 Hypothyroidism, unspecified (principal); R73.01 Impaired fasting glucose

== ENCOUNTER → 2020-06-29 | Outpatient (REF) | payer OTHER | LOC: CANPREREF → M LAB REF 16:40 | PROVIDERS: ATTEND Family Medicine | DX: Z53.9 Procedure and treatment not carried out, unspecified reason (principal) ==

== ENCOUNTER → 2020-06-30 | Outpatient (CLI) | payer OTHER ==
--- NOTE | 2020-07-07 12:14 | REPMRS ---
Patient History The patient states she had a clinical breast exam in June 2020. Family history of prostate cancer at age 78 in father, colorectal cancer at age 62 in mother. Took hormonal contraceptives for 19 years. Taking estrogen for 4 years. Digital Woman Screen Mammo: June 30, 2020 - Exam #: [id number] Bilateral CC and MLO view(s) were taken. Technologist: Belinda Caballero, Technologist Prior study comparison: February 17, 2019, bilateral digital woman screen mammo performed at [facility]. February 17, 2018, digital woman screen mammo performed at [facility]. February 15, 2017, digital woman screen mammo performed at [facility]. FINDINGS: There are scattered fibroglandular densities. The Volpara volumetric breast density category is:B. There has been no change in the appearance of the mammogram from the prior studies. There is a mild amount of scattered fibroglandular density which is fairly symmetric. There is no interval development of dominant mass, architectural distortion, or grouped microcalcification suggestive of malignancy. 3-D tomosynthesis shows no additional findings. Assessment: BI-RADS/ACR category 1 mammogram. Negative Mammogram. Recommendation Routine screening mammogram of both breasts in 1 year (for women over age 40). This patient's Lifetime Breast Cancer Risk is estimated at 9.6 %. This mammogram was interpreted with the aid of an FDA-approved computer-aided dectection system. Electronically Signed By: Jose Mercado MD 07/07/20 0489
== END ==
LOC: M WHC 10:37
PROVIDERS: ATTEND Nurse Practitioner Family
DX: Z12.31 Encounter for screening mammogram for malignant neoplasm of breast (principal)

== ENCOUNTER → 2020-06-30 | Outpatient (REF) | payer OTHER | LOC: M LAB REF 17:32 | PROVIDERS: ATTEND Family Medicine | DX: E03.9 Hypothyroidism, unspecified (principal) ==

== ENCOUNTER → 2020-12-22 | Outpatient (CLI) | payer OTHER ==
[2020-12-22 10:25] LABS: HEMOGLOBIN A1c 5.7 %
[2020-12-22 10:41] LABS: BLOOD UREA NITROGEN 15 MG/DL (7-18); CALCIUM LEVEL 9.5 MG/DL (8.5-10.1); CARBON DIOXIDE LEVEL 30 MEQ/L (21-32); CHLORIDE LEVEL 106 MEQ/L (98-107); CHOLESTEROL LEVEL 243 MG/DL (<200); CHOLESTEROL RISK RATIO 2.825 (<5); GLOMERULAR FILTRATION RATE > 60.0 (>51); GLUCOSE, FASTING 111 MG/DL (70-100); HDL CHOLESTEROL 86 MG/DL (>40); LDL CHOLESTEROL 139 MG/DL (<100); NON-HDL-C 157 MG/DL; POTASSIUM SERUM 4.4 MEQ/L (3.5-5.1); SODIUM LEVEL 143 MEQ/L (136-145); TRIGLYCERIDES LEVEL 88 MG/DL (<150)
== END ==
LOC: M WUC 08:04
PROVIDERS: ATTEND Family Medicine
DX: R73.01 Impaired fasting glucose (principal); Z13.220 Encounter for screening for lipoid disorders; E03.9 Hypothyroidism, unspecified

== ENCOUNTER → 2021-09-18 | Outpatient (CLI) | payer OTHER ==
[2021-09-18 16:07] LABS: BLOOD UREA NITROGEN 14 MG/DL (7-18); CALCIUM LEVEL 9.9 MG/DL (8.5-10.1); CARBON DIOXIDE LEVEL 30 MEQ/L (21-32); CHLORIDE LEVEL 105 MEQ/L (98-107); CREATININE FOR GFR 0.69 MG/DL (0.55-1.30); GLOMERULAR FILTRATION RATE > 60.0 (>51); GLUCOSE, FASTING 101 MG/DL (70-100); POTASSIUM SERUM 4.4 MEQ/L (3.5-5.1); SODIUM LEVEL 142 MEQ/L (136-145); THYROID STIMULATING HORMONE 0.398 uIU/ML (0.358-3.740)
== END ==
LOC: M PLALAB 12:27
PROVIDERS: ATTEND Family Medicine
DX: R73.01 Impaired fasting glucose (principal); E03.9 Hypothyroidism, unspecified

== ENCOUNTER → 2021-12-21 | Outpatient (CLI) | payer OTHER ==
[2021-12-21 16:25] LABS: APPEARANCE, URINE CLEAR (CLEAR); BACTERIA, URINE AUTO NEGATIVE (NEGATIVE); BILIRUBIN, URINE AUTO NEGATIVE (NEGATIVE); BLOOD, URINE BLOOD NEGATIVE (NEGATIVE); COLOR, URINE AMBER (YELLOW); GLUCOSE, URINE (UA) AUTO NEGATIVE (NEGATIVE); KETONE, URINE AUTO NEGATIVE (NEGATIVE); LEUKOCYTE ESTERASE, URINE AUTO 1+ (NEGATIVE); NITRITE, URINE AUTO POSITIVE (NEGATIVE); PROTEIN, URINE AUTO NEGATIVE (NEGATIVE); RBC, URINE AUTO 1 /HPF (0-3); SPECIFIC GRAVITY URINE AUTO 1.005 (1.002-1.035); SQUAMOUS EPITHELIAL CELL UR AU 1 /HPF (0-6); UROBILINOGEN, URINE AUTO 0.2 mg/dL (0.0-2.0); WBC, URINE AUTO 24 /HPF (0-3)
== END ==
LOC: M WUC 12:30
PROVIDERS: ATTEND Family Medicine
DX: R30.0 Dysuria (principal)

== ENCOUNTER → 2022-04-18 | Outpatient (CLI) | payer OTHER ==
[2022-04-18 13:00] LABS: APPEARANCE, URINE CLOUDY (CLEAR); BACTERIA, URINE AUTO 3+ (NEGATIVE); BASO % 0.2 % (0.0-1.0); BILIRUBIN, URINE AUTO NEGATIVE (NEGATIVE); BLOOD, URINE BLOOD 2+ (NEGATIVE); COLOR, URINE YELLOW (YELLOW); EOS # 0.1 10^3/uL (0.0-0.5); EOS % 1.5 % (0.0-3.0); GLUCOSE, URINE (UA) AUTO NEGATIVE (NEGATIVE); HEMATOCRIT 38.7 % (36.0-47.0); HEMOGLOBIN 12.1 g/dl (12.0-15.5); KETONE, URINE AUTO NEGATIVE (NEGATIVE); LEUKOCYTE ESTERASE, URINE AUTO 3+ (NEGATIVE); LYMPH # 1.9 10^3/uL (1.5-5.0); LYMPH % 28.6 % (24.0-44.0); MEAN CORPUSCULAR HGB CONC 31.3 g/dl (32.0-36.5); MEAN CORPUSCULAR VOLUME 92.8 fl (80.0-96.0); MONO # 0.4 10^3/uL (0.0-0.8); MONO % 5.8 % (2.0-8.0); MUCUS, URINE SMALL (NEGATIVE); NEUTROPHILS # 4.2 10^3/uL (1.5-8.5); NEUTROPHILS % 63.6 % (36.0-66.0); NITRITE, URINE AUTO NEGATIVE (NEGATIVE); PROTEIN, URINE AUTO 1+ mg/dL (NEGATIVE); RBC, URINE AUTO 64 /HPF (0-3); RED BLOOD COUNT 4.17 10^6/uL (4.00-5.40); SPECIFIC GRAVITY URINE AUTO 1.013 (1.002-1.035); SQUAMOUS EPITHELIAL CELL UR AU 1 /HPF (0-6); UROBILINOGEN, URINE AUTO 0.2 mg/dL (0.0-2.0); WBC, URINE AUTO TNTC /HPF (0-3); WHITE BLOOD COUNT 6.5 10^3/uL (4.0-10.0)
[2022-04-18 13:37] LABS: ALBUMIN 4.1 GM/DL (3.2-5.2); ALT/SGPT 15 U/L (12-78); BILIRUBIN,TOTAL 0.5 MG/DL (0.2-1.0); BLOOD UREA NITROGEN 13 MG/DL (7-18); CALCIUM LEVEL 9.8 MG/DL (8.5-10.1); CARBON DIOXIDE LEVEL 30 MEQ/L (21-32); CHLORIDE LEVEL 108 MEQ/L (98-107); CHOLESTEROL LEVEL 192 MG/DL (<200); CHOLESTEROL RISK RATIO 2.666 (<5); CREATININE FOR GFR 0.67 MG/DL (0.55-1.30); GLOMERULAR FILTRATION RATE > 60.0 (>51); GLUCOSE, FASTING 111 MG/DL (70-100); HDL CHOLESTEROL 72 MG/DL (>40); LDL CHOLESTEROL 106 MG/DL (<100); NON-HDL-C 120 MG/DL; POTASSIUM SERUM 4.4 MEQ/L (3.5-5.1); SODIUM LEVEL 143 MEQ/L (136-145); THYROID STIMULATING HORMONE 0.053 uIU/ML (0.358-3.740); TOTAL PROTEIN 7.2 GM/DL (6.4-8.2); TRIGLYCERIDES LEVEL 72 MG/DL (<150)
[2022-04-18 13:39] LABS: FOLATE 11.8 NG/ML (>5.4); TOTAL 25(OH) VITAMIN D 37.9 NG/ML (30.0-100.0); VITAMIN B12 LEVEL 294 PG/ML (247-911)
[2022-04-18 14:33] LABS: HEMOGLOBIN A1c 5.8 %
== END ==
LOC: M WUC 09:00
PROVIDERS: ATTEND Family Medicine
DX: R30.0 Dysuria (principal); R53.83 Other fatigue; R73.01 Impaired fasting glucose; Z13.220 Encounter for screening for lipoid disorders; E03.9 Hypothyroidism, unspecified

== ENCOUNTER → 2022-07-02 | Outpatient (CLI) | payer OTHER | LOC: M PLALAB 10:19 | PROVIDERS: ATTEND Family Medicine | DX: E03.9 Hypothyroidism, unspecified (principal) ==

== ENCOUNTER → 2022-09-13 | Outpatient (CLI) | payer OTHER | LOC: M WHC 07:49 | PROVIDERS: ATTEND Nurse Practitioner Family | DX: Z12.31 Encounter for screening mammogram for malignant neoplasm of breast (principal) ==

== ENCOUNTER → 2022-09-13 | Outpatient (REF) | payer OTHER | LOC: M PLALAB 08:56 | PROVIDERS: ATTEND Nurse Practitioner Family | DX: Z12.4 Encounter for screening for malignant neoplasm of cervix (principal) ==

== ENCOUNTER → 2022-10-25 | Outpatient (CLI) | payer OTHER ==
[~2022-10-25] MED LIST changes: +LEVO125T4 PO; +LORA-622 PO; +TIZA2CAP PO
== END ==
LOC: M LABSMTC 09:45
PROVIDERS: ATTEND Anesthesiology
DX: Z01.812 Encounter for preprocedural laboratory examination (principal); Z11.52 Encounter for screening for COVID-19

== ENCOUNTER 2022-10-30 06:27 | Day surgery (SDC) | payer OTHER ==
[~2022-10-30] VITALS: Ht 170.2 cm; Wt 77.9 kg
[~2022-10-30 06:27] MED LIST changes: +NS 1,000 ML IV ONE
[2022-10-30] MEDS ORDERED: propofoL 200 MG/20 ML VIAL As Ordered ONE ×2 (06:59→08:01)
[2022-10-30] MEDS ORDERED: GLYCOPYRROLATE INJ 0.2 MG/ML 2 ML VIAL As Ordered ONE (07:29)
[2022-10-30 08:20] VITALS: BP 118/72
== END 2022-10-30 08:39 | disposition home or self-care (01) ==
LOC: M OPP 06:27
PROVIDERS: ATTEND Internal Medicine Gastroenterology
DX: Z12.11 Encounter for screening for malignant neoplasm of colon (principal); Z86.010 Personal history of colon polyps; Z80.0 Family history of malignant neoplasm of digestive organs; K63.5 Polyp of colon; K64.8 Other hemorrhoids; Z79.1 Long term (current) use of non-steroidal anti-inflammatories (NSAID); Z79.84 Long term (current) use of oral hypoglycemic drugs; Z79.899 Other long term (current) drug therapy; Z79.818 Long term (current) use of other agents affecting estrogen receptors and estrogen levels; Z88.2 Allergy status to sulfonamides; E11.9 Type 2 diabetes mellitus without complications; E03.9 Hypothyroidism, unspecified; Z87.891 Personal history of nicotine dependence; Z80.42 Family history of malignant neoplasm of prostate; Z80.7 Family history of other malignant neoplasms of lymphoid, hematopoietic and related tissues

== ENCOUNTER → 2023-05-10 | Outpatient (CLI) | payer OTHER ==
[~2023-05-10] MED LIST changes: -NS 1,000 ML IV ONE
[2023-05-10 12:56] LABS: BASO % 0.4 % (0.0-1.0); EOS # 0.1 10^3/uL (0.0-0.5); EOS % 2.3 % (0.0-3.0); HEMATOCRIT 38.1 % (36.0-47.0); HEMOGLOBIN 11.9 g/dl (12.0-15.5); LYMPH # 2.2 10^3/uL (1.5-5.0); LYMPH % 44.1 % (24.0-44.0); MEAN CORPUSCULAR HEMOGLOBIN 29.5 pg (27.0-33.0); MEAN CORPUSCULAR HGB CONC 31.2 g/dl (32.0-36.5); MEAN CORPUSCULAR VOLUME 94.3 fl (80.0-96.0); MONO # 0.3 10^3/uL (0.0-0.8); MONO % 6.4 % (2.0-8.0); NEUTROPHILS # 2.3 10^3/uL (1.5-8.5); NEUTROPHILS % 46.6 % (36.0-66.0); PLATELET COUNT, AUTOMATED 172 10^3/uL (150-450); RED BLOOD COUNT 4.04 10^6/uL (4.00-5.40); WHITE BLOOD COUNT 4.9 10^3/uL (4.0-10.0)
[2023-05-10 13:02] LABS: ALBUMIN 4.2 G/DL (3.2-5.2); ALKALINE PHOSPHATASE 62 U/L (46-116); ALT/SGPT 19 U/L (7.0-40); AST/SGOT 20 U/L (<34); BILIRUBIN,TOTAL 0.5 MG/DL (0.3-1.2); BLOOD UREA NITROGEN 12 MG/DL (9-23); CALCIUM LEVEL 10.3 MG/DL (8.5-10.1); CARBON DIOXIDE LEVEL 30 MMOL/L (20-31); CHLORIDE LEVEL 104 MMOL/L (98-107); CHOLESTEROL LEVEL 198 MG/DL (<200); CHOLESTEROL RISK RATIO 2.63 (<5); GLOMERULAR FILTRATION RATE > 60.0 (>51); GLUCOSE, FASTING 109 MG/DL (60-100); HDL CHOLESTEROL 75.1 MG/DL (>40); LDL CHOLESTEROL 108.1 MG/DL (<100); NON-HDL-C 122.9 MG/DL; POTASSIUM SERUM 4.4 MMOL/L (3.5-5.1); SODIUM LEVEL 141 MMOL/L (136-145); TOTAL PROTEIN 7.1 G/DL (5.7-8.2); TRIGLYCERIDES LEVEL 74 MG/DL (<150)
[2023-05-10 13:04] LABS: THYROID STIMULATING HORMONE 28.117 uIU/ML (0.55-4.78)
[2023-05-10 13:30] LABS: HEMOGLOBIN A1c 7.1 % (4.0-6.0)
== END ==
LOC: M WUC 09:35
PROVIDERS: ATTEND Family Medicine
DX: E03.9 Hypothyroidism, unspecified (principal); R73.03 Prediabetes; E66.3 Overweight

== ENCOUNTER → 2023-08-21 | Outpatient (CLI) | payer OTHER | LOC: M WUC 12:33 | PROVIDERS: ATTEND Nurse Practitioner Family | DX: M54.50 Low back pain, unspecified (principal) ==

== ENCOUNTER → 2024-08-13 | Outpatient (REF) | payer BC ==
[2024-08-20 21:07] LABS: HPV VAGINAL Not Detected (NOT DETECT)
== END ==
LOC: M SFHCWAGY 13:30
PROVIDERS: ATTEND Nurse Practitioner Family
DX: Z12.72 Encounter for screening for malignant neoplasm of vagina (principal); N95.2 Postmenopausal atrophic vaginitis
CPT/HCPCS: 87624; G0123

== ENCOUNTER → 2024-08-13 | Outpatient (CLI) | payer BC, OTHER, SELFPAY | LOC: M WHC 08:00 | PROVIDERS: ATTEND Nurse Practitioner Family | DX: Z12.31 Encounter for screening mammogram for malignant neoplasm of breast (principal) ==